=== PATIENT | female | born 1990 | race American Indian/Alaskan Native ===

== ENCOUNTER 2016-07-23 13:37 | Emergency (ER) | payer OTHER ==
[2016-07-23 13:47] VITALS: TEMP 98.2; BMI 35.7
--- NOTE | 2016-07-23 14:00 | ED PDOC ---
Arrival/HPI - General Historian: Patient - General Time Seen by Provider: 07/23/16 13:50 - History of Present Illness Narrative History of Present Illness (Text): 07/23/16 13:58 25 y/o female, pmh including asthma, nonsmoker, approx. 5 weeks , LMP , , c/o coughing/chest congestion/runny nose for the past 3-4 days. Pt. stated that the coughing has been really severe for the past 2 days with phelgm, unable to clear it competely, admits watery and runny nose, no palpitation, no dizziness, no shortness of breath or night sweat, no vaginal bleeding or pelvic cramp, no abdominal pain, no weight loss, no other medical or psychological complaints. (Lexx Lowe) Past Medical History - Provider Review Nursing Documentation Reviewed: Yes - Infectious Disease Hx of Infectious Diseases: None - Pulmonary Hx Asthma: Yes - Gastrointestinal Other/Comment: CONSTIPATION - Psychiatric Hx Psychophysiologic Disorder: No Hx Substance Use: No - Surgical History Hx Section: Yes - Anesthesia Hx Anesthesia: Yes Hx Anesthesia Reactions: No Hx Malignant Hyperthermia: No Family/Social History - Physician Review Nursing Documentation Reviewed: Yes Family/Social History: Unknown Family HX Smoking Status: Never Smoked Hx Alcohol Use: No Hx Substance Use: No Allergies/Home Meds Allergies/Adverse Reactions: Allergies cat dander Allergy (Verified 07/23/16 14:55) ITCHING dog dander Allergy (Verified 07/23/16 14:55) ITCHING iv contrast Allergy (Uncoded 07/23/16 14:55) ANAPHYLAXIS Home Medications: Home Meds Medication Instructions Recorded Confirmed Albuterol HFA [Ventolin HFA 90 1 inh INH PRN PRN 07/23/16 07/23/16 mcg/actuation (8 g)] Review of Systems - Review of Systems Constitutional: absent: Fatigue, Fevers Eyes: absent: Vision Changes ENT: Rhinorrhea. absent: Hearing Changes Respiratory: Cough, Sputum. absent: SOB, Wheezing Cardiovascular: absent: Chest Pain, Palpitations Gastrointestinal: absent: Abdominal Pain, Nausea, Vomiting Musculoskeletal: absent: Arthralgias, Back Pain, Neck Pain, Joint Swelling, Myalgias Psychiatric: absent: Anxiety, Depression, Suicidal Ideation Physical Exam Vital Signs Reviewed: Yes Temperature: Afebrile Blood Pressure: Normal Pulse: Regular Respiratory Rate: Normal Appearance: Positive for: Well-Appearing, Non-Toxic, Comfortable Pain Distress: None Mental Status: Positive for: Alert and Oriented X 3 - Systems Exam Head: Present: Atraumatic, Normocephalic Pupils: Present: PERRL Extroacular Muscles: Present: EOMI Conjunctiva: Present: Normal Ears: Present: NORMAL TM, Normal Canal. No: Erythema Mouth: Present: Moist Mucous Membranes Pharnyx: No: ERYTHEMA, EXUDATE, TONSILS ENLARGED, Muffled/Hoarse Voice Nose (External): Present: Atraumatic. No: Abrasion, Contusion, Laceration, Lesions Nose (Internal): Present: Normal Inspection, No Active Bleeding, Rhinorrhea. No : Purulent Mucous, Septal Deviation, Septal Hematoma, Epistaxis Neck: Present: Normal Range of Motion, Trachea Midline. No: Meningeal Signs, MIDLINE TENDERNESS, Paraspinal Tenderness, Lymphadenopathy Respiratory/Chest: Present: Clear to Auscultation, Good Air Exchange, Rhonchi ( crackles noted on the rt. lower lobe). No: Respiratory Distress, Accessory Muscle Use, Wheezes, Decreased Breath Sounds, Rales, Retracting, Tachypneic, Tender to Palpation Cardiovascular: Present: Regular Rate and Rhythm, Normal S1, S2, Other (no pedal edema). No: Murmurs Abdomen: Present: Normal Bowel Sounds. No: Tenderness, Distention, Peritoneal Signs Back: Present: Normal Inspection Upper Extremity: Present: Normal Inspection. No: Cyanosis, Edema Lower Extremity: Present: Normal Inspection. No: Edema Neurological: Present: GCS=15, Speech Normal, Norm Deep Tendon Reflexes, Gait Normal, Memory Normal Skin: Present: Warm, Dry, Normal Color. No: Rashes Psychiatric: Present: Alert, Oriented x 3, Normal Insight, Normal Concentration Medical Decision Making - EKG Interpretation Interpreted by ED Physician: Yes Type: 12 lead EKG ED Course and Treatment: 07/23/16 13:59 -cbc/cmp/ua -ekg -IVF/benadryl -discussed with the patient about the shield xray, pt. refused to have xray. 07/23/16 17:06 -EKG: NSR @ 76 BPM, no ST elevation or depression, no T wave inversion, no heart block -Labs are non-significant -UA show no UTI -Vitally stable with no tachycardic, lung is clear to auscultate except mild crackles noted but no wheezing. All questions asked and answered. -I discussed with Dr. Shrestha about the case/labs and physical examination, she will follow up the case with brake linings coater as she already gave her the referral. -Physical examination with crackles and signs of pneumonia, room air saturation within normal limit, no indication of the steroid at this time especially the patient is . IV rocephina and azithromycin ordered. -Discharge home with cefdinir, zyrtec, stay hydrated, bed rest, follow up with your own pmd and tube test technician/brake linings coater within 2 days, return to the ER for any new or worsening signs or symptoms. (Lexx Lowe) I was available for consultation during PA evaluation. The chart was reviewed by me, and I agree with disposition. The documented history was done by the physician pocket closer. The documented physical exam was done by the physician pocket closer. The documented procedures were done by the physician pocket closer. ( Abdi Mcintosh) - Lab Interpretations Lab Results: 07/23/16 14:20 07/23/16 14:20 Lab Results 07/23/16 16:10: Urine Color Yellow, Urine Appearance Clear, Urine pH 6.5, Ur Specific [place] 1.015, Urine Protein Negative, Urine Glucose (UA) Negative, Urine Ketones Negative, Urine Blood Trace-lysed H, Urine Nitrate Negative, Urine Bilirubin Negative, Urine Urobilinogen 0.2, Ur Leukocyte Esterase Negative , Urine RBC 0 - 2, Urine WBC Negative, Ur Epithelial Cells 1 - 3, Urine Bacteria Mod 07/23/16 14:20: Sodium 135, Potassium 3.8, Chloride 104, Carbon Dioxide 22, Anion Gap 13, BUN 9, Creatinine 0.7, Est GFR ( Amer) > 60, Est GFR (Non- Af Amer) > 60, Random Glucose 78, Calcium 9.1, Total Bilirubin 0.3, AST 25, ALT 32, Alkaline Phosphatase 53, Total Protein 7.3, Albumin 4.1, Globulin 3.1, Albumin/Globulin Ratio 1.3 07/23/16 14:20: WBC 8.7 D, RBC 4.24, Hgb 14.2, Hct 40.5, MCV 95.5, MCH 33.5, MCHC 35.1, RDW 12.8, Plt Count 265, MPV 9.1, Gran % 67.9, Lymph % (Auto) 18.7 L , Barry % (Auto) 6.6 H, Eos % (Auto) 6.3 H, Baso % (Auto) 0.5, Gran # 5.91, Lymph # 1.6, Barry # 0.6, Eos # 0.6, Baso # 0.04 - EKG Interpretation EKG Interpretation (Text): 07/23/16 14:14 NSR @ 76 BPM, no ST elevation or depression, no T wave inversion, no heart block (Lexx Lowe) - Medication Orders Current Medication Orders: Discontinued Medications Diphenhydramine HCl (Benadryl) 50 mg IVP STAT STA Stop: 07/23/16 14:11 Last Admin: 07/23/16 15:01 Dose: 50 mg Sodium Chloride (Sodium Chloride 0.9%) 1,000 mls @ 999 mls/hr IV .Q1H1M STA Stop: 07/23/16 15:10 Last Admin: 07/23/16 15:01 Dose: 999 mls/hr Ceftriaxone Sodium (Rocephin 1 Gram Ivpb) 1 gm in 100 mls @ 200 mls/hr IVPB STAT STA PRN Reason: Protocol Stop: 07/23/16 14:39 Last Admin: 07/23/16 15:01 Dose: 200 mls/hr Azithromycin 500 mg/ Sodium (Chloride) 250 mls @ 167 mls/hr IVPB STAT STA PRN Reason: Protocol Stop: 07/23/16 15:39 Last Admin: 07/23/16 16:04 Dose: 167 mls/hr - PA / BOOKSTORE MANAGER / Resident Statement / has reviewed & agrees with the documentation as recorded. Disposition/Present on Arrival - Present on Arrival Any Indicators Present on Arrival: No History of DVT/PE: No History of Uncontrolled Diabetes: No Urinary Catheter: No History of Decub. Ulcer: No History Surgical Site Infection Following: None - Disposition Have Diagnosis and Disposition been Completed?: Yes Disposition Time: 14:13 Patient Plan: Discharge - Disposition Diagnosis: Pneumonia Disposition: HOME/ ROUTINE Condition: IMPROVED Additional Instructions: Discharge home with cefdinir, zyrtec, stay hydrated, bed rest, follow up with your own pmd and tube test technician/brake linings coater within 2 days, return to the ER for any new or worsening signs or symptoms. Prescriptions: Cefdinir [Omnicef] 300 mg PO BID #20 cap Cetirizine HCl [Zyrtec Allergy] 10 mg PO DAILY #10 sgl Referrals: Yamileth Shrestha MD [Primary Care Provider] - Follow up with primary Kenny Page MD [Staff Provider] - Follow up with primary Lisa Hebert MD [Staff Provider] - Follow up with primary Forms: [employer] ([place]), WORK NOTE
[2016-07-23] MEDS ORDERED: Sodium Chloride 0.9% 1,000 ML IV STA (14:10)
[2016-07-23] MEDS ORDERED: Azithromycin 500 MG in Sodium Chloride 0.9% 250 ML IVPB STA (14:10)
[2016-07-23] MEDS ORDERED: DiphenhydrAMINE 50 mg/ml Inj IVP STA (14:10)
[2016-07-23] MEDS ORDERED: cefTRIAXone 1 gm 1 GM/100 ML BAG IVPB STA (14:10)
[2016-07-23 14:34] LABS: ADD MANUAL DIFF? NO
[2016-07-23 14:40] LABS: BASO # 0.04 K/mm3 (0.0-2.0); BASO % 0.5 % (0.0-3.0); EOS # 0.6 (0.0-0.7); EOS % 6.3 % (1.5-5.0); GRAN # 5.91 (1.4-6.5); GRAN % 67.9 % (50.0-68.0); HEMATOCRIT 40.5 % (36.0-48.0); LYMPH # 1.6 (1.2-3.4); LYMPH % 18.7 % (22.0-35.0); MEAN CELL VOLUME 95.5 fL (80.0-105.0); MEAN CORPUSCULAR HEMOGLOBIN 33.5 pg (25.0-35.0); MEAN CORPUSCULAR HGB CONC 35.1 g/dl (31.0-37.0); MEAN PLATELET VOLUME 9.1 fl (7.0-11.0); MONO # 0.6 (0.1-0.6); MONO % 6.6 % (1.0-6.0); PLATELET COUNT 265 10^3/uL (120.0-450.0); RED CELL DISTRIBUTION WIDTH 12.8 % (11.5-14.5); WHITE BLOOD COUNT 8.7 10^3/ul (4.5-11.0)
[2016-07-23 14:58] LABS: ALB/GLOB RATIO 1.3 (1.1-1.8); ALKALINE PHOSPHATASE 53 U/L (38-133); ALT/SGPT 32 U/L (7-56); AST/SGOT 25 U/L (15-39); BILIRUBIN,TOTAL 0.3 mg/dL (0.2-1.3); BLOOD UREA NITROGEN 9 mg/dL (7-21); CALCIUM 9.1 mg/dL (8.4-10.5); CARBON DIOXIDE 22 mmol/L (21-33); CHLORIDE 104 mmol/L (95-110); GFR AFRICAN-AMERICAN > 60; GLUCOSE,RANDOM 78 mg/dL (70-110); POTASSIUM 3.8 mmol/L (3.6-5.0); SODIUM 135 mmol/L (132-148); TOTAL PROTEIN 7.3 g/dL (5.8-8.3)
[2016-07-23 16:23] LABS: PH,URINE 6.5 (4.7-8.0); URINE BILIRUBIN NEGATIVE (NEGATIVE); URINE BLOOD TRACE-LYSED (NEGATIVE); URINE GLUCOSE (UA) NEGATIVE (NEGATIVE); URINE KETONE NEGATIVE (NEGATIVE); URINE LEUKOCYTE ESTERASE NEGATIVE Leu/uL (NEGATIVE); URINE PROTEIN NEGATIVE mg/dL (<30 mg/dL); URINE UROBILINOGEN 0.2 E.U./dL (<1 E.U./dL)
[2016-07-23 16:32] LABS: URINE APPEARANCE CLEAR (CLEAR); URINE COLOR YELLOW (YELLOW)
[2016-07-23 16:54] LABS: URINE BACTERIA MOD (NEG); URINE RBC 0 - 2 /hpf (0-2); URINE WBC NEGATIVE /hpf (0-6)
[2016-07-23 17:18] VITALS: BP 121/63; PULSE 74; RESP 18; O2SAT 98
--- NOTE | 2016-07-24 09:48 | CARD ---
APPROVED REPORT EKG Measurement Heart [id number] IN [id number] <Conclusion> Normal sinus rhythm Normal ECG
== END 2016-07-23 18:30 | disposition home or self-care (01) ==
LOC: ED 13:37
DX: O99.511 Diseases of the respiratory system complicating pregnancy, first trimester (principal); Z3A.01 Less than 8 weeks gestation of pregnancy
CPT/HCPCS: 80053; 81001; 85025; 93005; 96374; 99284; J0456; J0696; J1200; J7040